=== PATIENT | female | born 1995 | race Caucasian/White ===

== ENCOUNTER 2018-04-09 17:07 | Emergency (ER) | payer SELFPAY ==
[~2018-04-09 17:07] MED LIST: Iopamidol 370 76% 100 ML VIAL ONE
[2018-04-09 17:50] LABS: Bilirubin Small (Negative); Blood, Urine Negative (Negative); Clarity Clear (Clear); Glucose, Urine (Dipstick) Negative (Negative); Leukocyte Negative (Negative); Nitrite Negative (Negative); Protein, Urine (Dipstick) 30 mg/dL (Neg-Trace); Urobilinogen 0.2 mg/dL (0.2-1.0)
[2018-04-09 17:53] LABS: Bacteria/HPF Rare-Few HPF (None Seen); Pregnancy Test - Urine (BHCG) Negative (Negative); Pregu Control Background? CLEAR/WHITE (CLR/WHITE); Pregu Control Bar Appear? YES (CONTROL BAR); RBC/HPF None Seen HPF (0-3); WBC/HPF 0-3 HPF (0-3)
--- NOTE | 2018-04-09 19:49 | CT ---
CT ABDOMEN WITH CONTRAST CT PELVIS WITH CONTRAST: 04/09/18 HISTORY: 22-year-old female with left lower quadrant abdominal pain. TECHNIQUE: IV injection of iodinated contrast media: 90 mL Isovue 370 Oral contrast media: Not administered. FINDINGS: Liver: Normal. Spleen: Normal. Pancreas: Normal. Adrenals: Normal. Kidneys: Normal. Ureters: No dilation. Bladder: No pathology identified. Abdominal aorta: No aneurysm or dissection. Small bowel: No dilation. Colon: No adjacent fat stranding. Appendix: Normal. Free air: None. Free fluid: None. IMPRESSION: Normal jn [] POS: [facility]
[2018-04-09] MEDS ORDERED: Ketorolac Tromethamine 30 MG/ML VIAL ONE (20:29)
== END 2018-04-09 21:45 | disposition home or self-care (01) ==
LOC: MADERS 17:07
DX: R10.32 Left lower quadrant pain (principal); I10 Essential (primary) hypertension; E66.9 Obesity, unspecified
CPT/HCPCS: 74177; 81003; 81015; 81025; 96372; J1885

== ENCOUNTER 2019-10-23 13:47 | Emergency (ER) | payer SELFPAY ==
[2019-10-23 15:41] LABS: Bilirubin Small (Negative); Blood, Urine Negative (Negative); Clarity Clear (Clear); Glucose, Urine (Dipstick) Negative (Negative); Leukocyte Negative (Negative); Nitrite Negative (Negative); Pregnancy Test - Urine (BHCG) POSITIVE (Negative); Pregu Control Background? CLEAR/WHITE (CLR/WHITE); Pregu Control Bar Appear? YES (CONTROL BAR); Protein, Urine (Dipstick) Trace mg/dL (Neg-Trace); Specific Gravity 1.025 (1.002-1.036)
[2019-10-23 16:15] LABS: #Basophils 0.1 thou/uL (0.0-0.2); #Eosinphils 0.1 thou/uL (0.0-0.7); #Lymphocytes 2.4 thou/uL (1.20-3.40); #Monocytes 0.8 thou/uL (0.11-0.59); #Neutrophils 8.6 thou/uL (1.40-6.50); %Basophils 0.7 % (0.0-1.0); %Eosinophils 1.2 % (0.0-10.0); %Lymphocytes 19.9 % (21.0-51.0); %Monocytes 6.7 % (0.0-10.0); %Neutrophils 71.5 % (42.0-75.0); Hemoglobin 14.5 g/dL (12.0-16.0); Mean Corpuscular HGB CONC 30.2 g/dL (32.0-36.0); Mean Corpuscular Hemoglobin 25.6 pg (27.0-31.0); Mean Corpuscular Volume 84.9 fL (78.0-98.0); Mean Platelet Volume 7.8 fL (7.4-10.4); Platelet Count 282 thou/uL (130-400); RBC Distribution Width 13.8 % (11.5-14.5); Red Blood Cell (RBC) Count 5.67 mill/uL (4.20-5.40)
[2019-10-23 16:18] LABS: Prothrombin Time 12.8 SEC (12.0-14.7)
[2019-10-23 16:27] LABS: Anion Gap 17 mmol/L (10-20); BUN (Urea Nitrogen) 12 mg/dL (7.0-18.7); Calc. Creatinine Clearance 0 mL/min (70-130); Calcium 9.6 mg/dL (7.8-10.44); Carbon Dioxide 23 mmol/L (22-29); Chloride 103 mmol/L (98-107); Estimated GFR-MDRD 71; Glucose 98 mg/dL (70-105); Potassium 3.7 mmol/L (3.5-5.1); Sodium 139 mmol/L (136-145)
== END 2019-10-23 18:17 | disposition short-term general hospital (02) ==
LOC: MADERS 13:47
DX: O26.851 Spotting complicating pregnancy, first trimester (principal); O99.211 Obesity complicating pregnancy, first trimester; E66.9 Obesity, unspecified
CPT/HCPCS: 36415; 80048; 81003; 81025; 84702; 85025; 85610; 99284

== ENCOUNTER 2024-03-02 17:47 | Emergency (ER) | payer OTHER ==
[2024-03-02 18:15] LABS: Bilirubin Negative (Negative); Blood, Urine Negative (Negative); Glucose, Urine (Dipstick) Negative (Negative); Ketone, Urine Negative (Negative); Leukocyte Negative (Negative); Nitrite Negative (Negative); Protein, Urine (Dipstick) Negative (Neg-Trace); Urobilinogen 0.2 mg/dL (Less than 2); pH, Urine 5.5 (5.0-9.0)
[2024-03-02 18:16] LABS: Specific Gravity, Urine 1.021 (1.002-1.036)
[2024-03-02 18:17] LABS: Clarity Clear (Clear)
[2024-03-02] MEDS ORDERED: Sodium Chloride 0.9% 1,000 ML ONE (18:21)
[2024-03-02] MEDS ORDERED: Metoclopramide HCl 10 MG (2 mL) VIAL ONE (18:21)
[2024-03-02] MEDS ORDERED: Ketorolac Tromethamine 30 MG (1 mL) VIAL ONE (18:21)
[2024-03-02] MEDS ORDERED: diphenhydrAMINE 50 MG/ML VIAL ONE (18:21)
[2024-03-02 18:23] LABS: Bacteria/HPF Rare-Few HPF (None Seen); CAUTI Indications for Culture Dysuria,urgency,freq; Mucous/LPF 1+ LPF (<2+); RBC/HPF None Seen HPF (0-3); Urine Culture Reflex No No; WBC/HPF 0-3 HPF (0-3)
[2024-03-02 19:13] LABS: Pregu Control Background? CLEAR/WHITE (CLR/WHITE); Pregu Control Bar Appear? YES (CONTROL BAR); Specific Gravity 1.021 (1.002-1.036)
[2024-03-02 19:14] LABS: Pregnancy Test - Urine (BHCG) Negative (Negative)
== END 2024-03-02 19:23 | disposition home or self-care (01) ==
LOC: MADERS 17:47
DX: R51.9 Headache, unspecified (principal)
CPT/HCPCS: 81001; 81025; 96361; 96374; 96375; J1200; J1885; J2765; J7050